=== PATIENT | female | born 1935 | race Caucasian/White ===

== ENCOUNTER 2016-12-20 11:50 | Inpatient (IN) | payer MEDICARE, OTHER ==
[~2016-12-20] VITALS: Ht 165.1 cm; Wt 104.0 kg
[2016-12-20] VITALS (8 sets, daily range): BP systolic 102–141; BP diastolic 49–75
[~2016-12-20 11:50] MED LIST: BABY ASPIRIN81 MG OR; CALCIUM 6001 TAB OR; COZAAR25 MG PO; LOMOTIL2.5 MG OR; MORPHINE SUL30 M2 IJ; NORCO1 TAB OR; PRILOSEC20 MG PO; VALIUM5 MG OR; VYTORIN1 TA1 OR; ZOLOFT50 MG OR
--- NOTE | 2016-12-20 12:07 | NUR ---
PT TO ROOM 13 VIA WC.
[2016-12-20 13:10] LABS: HEMATOCRIT 35.1 % (37.0-47.0); IMMATURE GRANULOCYTES 0.5 % (0.0-1.0); MEAN CELL VOLUME 91.6 fL CALC (80.0-100.0); MEAN CORPUSCULAR HGB 28.7 pG CALC (26.0-32.0); MEAN CORPUSCULAR HGB CONC 31.3 g/L CALC (32.0-36.0); NEUT# 15.41 thou/uL (2.00-7.15); RED BLOOD COUNT 3.83 mill/uL (4.20-5.60); RED CELL DISTRI WIDTH 14.6 % (11.5-15.5)
[2016-12-20 13:15] LABS: ALBUMIN 4.2 g/dL (3.2-5.0); BILIRUBIN, TOTAL 0.8 mg/dL (0.0-1.4); CALCIUM 9.2 mg/dL (8.4-10.2); POTASSIUM 4.7 mmol/l (3.5-5.1); TOTAL PROTEIN 7.1 g/dL (6.3-8.2)
[2016-12-20 14:40] LABS: URINE BILIRUBIN - DIPSTICK NEGATIVE (NEGATIVE); URINE BLOOD DIPSTICK MODERATE (NEGATIVE); URINE COLOR YELLOW; URINE GLUCOSE - DIPSTICK NEGATIVE (NEGATIVE); URINE KETONE NEGATIVE (NEGATIVE); URINE NITRITE - DIPSTICK NEGATIVE (Negative); URINE PH 5.5 (4.5-8.0); URINE PROTEIN - DIPSTICK NEGATIVE (NEG-TRACE); URINE UROBILINOGEN - DIPSTICK 0.2 E.U./dL (0.2)
--- NOTE | 2016-12-20 14:40 | NUR ---
PT UPDATED BY EDP ON POSITIVE TROPONIN, AWARE OF NECESSARY TRANFER TO [facility].
[2016-12-20 14:45] LABS: URINE CLARITY HAZY; URINE LEUK ESTERASE SMALL (NEGATIVE)
[2016-12-20 14:56] LABS: URINE SQUAMOUS EPITHELIAL CELL FEW EPI/hpf (0-FEW)
[2016-12-20 15:10] LABS: ACT PARTIAL THROMBO TIME 31.7 SECONDS (20.0-32.5); INTERNATIONAL NORMALIZED RATIO 1.1 RATIO (0.7-1.3); PROTHROMBIN TIME 12.5 SECONDS (9.0-12.5)
[2016-12-20] MEDS ORDERED: ELIQUIS2.5 MG PO (15:33)
[2016-12-20] MEDS ORDERED: SIMVASTATIN20 MG PO (15:34)
[2016-12-20] MEDS ORDERED: GABAPENTIN100 MG PO (15:34)
[2016-12-20] MEDS ORDERED: ZOLOFT50 MG PO (15:34)
[2016-12-20] MEDS ORDERED: B-121000 MC1 PO (15:36)
[2016-12-20] MEDS ORDERED: VITAMIN D-32000 UNI1 PO (15:36)
[2016-12-20] MEDS ORDERED: NORCO1 TA1 PO (15:37)
[2016-12-20] MEDS ORDERED: MYRBETRIQ50 MG PO (15:40)
--- NOTE | 2016-12-20 15:45 | NUR ---
PT ARRIVED TO THE UNIT VIA STRETCHER, PT AMBULATED TO BSC WITH MINIMAL ASSISTANCE AND THEN TO THE BED, PT AMBULATES WITH A SLOW UNSTEADY GAIT, PT A&OX3, PERRL, HR 82, RESP EVEN AND UNLABORED, BP 141/75, O2 93% ON RA, 20G LAC IV SALINE LOCKED, 20G RAC IV WITH NS INFUSING AT PERSCRIBED RATE, HEPARIN DRIP STOPPED IN ER BY NURSE MARTINEZ, SKIN WARM CD&I, [employer] AND CALL LOBATO SYSTEM EXPLAINED TO PT PRIOR TO APPLYING TO PT, ADMISSION ASSESSMENT COMPLETE, PT VERBALIZES UNDERSTANDING, SAFETY MEASURES INTRODUCED, CALL LOBATO WITHIN REACH
--- NOTE | 2016-12-20 16:00 | NUR ---
PT ADMITTED TO ICU. REPORT PROVIDED TO NEELA WARD, WHO TAKES PT UPSTAIRS.
--- NOTE | 2016-12-20 16:15 | NUR ---
PT SITTING UP IN BED TALKING TO VISITORS, VERBALIZES NO COMPLAINTS, CALL LOBATO WITHIN REACH
--- NOTE | 2016-12-20 17:20 | NUR ---
DR OAKLEY AT BEDSIDE
--- NOTE | 2016-12-20 17:30 | NUR ---
SETUP ASSISTANCE PROVIDED WITH PM MEAL TRAY
[2016-12-20 18:15] LABS: CHOLESTEROL HDL RATIO 3.6 (<4.4 (CALC))
--- NOTE | 2016-12-20 19:27 | NUR ---
BEDSIDE REPORT RECEIVED FROM NEELA WARD LPN. PT RESTING IN BED IN SEMI FOWLERS POSITION WITH AT BEDSIDE. DENIES PAIN CURRENTLY AND DENIES ANXIETY. STATES THAT SHE CONTINUES TO HAVE SOME SHAKING OF UNKNOWN CAUSE. SHAKING NOT OBSERVED BY NURSE AT THIS TIME. RESPIRATIONS EVEN AND UNLABORED ON ROOM AIR. ASSESSMENT COMPLETED AND DOCUMENTED. PLAN OF CARE DISCUSSED. PT ENCOURAGED TO VERBALIZE CONCERNS. STATES UNDERSTANDING. SAFETY MEAUSURES IN PLACE. CALL LIGHT SYSTEM REVIEWED AND IN REACH.
--- NOTE | 2016-12-20 22:05 | NUR ---
PT UP TO COMMODE TO VOID. HYGEINE PROVIDED AND LINENS CHANGES. PT SOB WITH EXERTION AND DIAPHORETIC. MAX ASSIST X 2 NEEDED TO GET BACK IN BED. PT C/O CHRONIC RIGHT SHOULDER PAIN AND ARTHRITIC PAIN TO LEFT ANKLE. LORTAB AND ATIVAN GIVEN AT HS. APPEARS RELAXED NOW; RESPIRAITONS EVEN AND UNLABORED. SKIN COOL AND DRY.
--- NOTE | 2016-12-20 22:33 | NUR ---
DAUGHTER, DOV COELHO, CALLED AND UPDATED ON PT CONDITION. LEFT PHONE NUMBER IN CASE SHE NEEDS TO BE REACHED [phone].
[2016-12-21] VITALS (12 sets, daily range): BP systolic 85–131; BP diastolic 42–61
--- NOTE | 2016-12-21 00:05 | NUR ---
PT ASLEEP AT THIS TIME. NO SIGNS OF DISTRESS. NO APPARENT CHANGES IN CONDITION. VS STABLE.
--- NOTE | 2016-12-21 01:14 | NUR ---
TROPONIN RESULTS REMAIN ELEVATED AT 0.318. DR. OAKLEY CALLED WITH [facility]. STATES THAT WE WILL AWAIT MORNING LAB RESULTS PT IS ASYMPTOMATIC.
--- NOTE | 2016-12-21 04:03 | NUR ---
UP TO BSC WITH LESS DIFFICULTY. MAX ASSIST X 1. SMILING AND PLEASANT. DENIES PAIN CURRENTLY. RESPIRATIONS EVEN AND UNLABORED. PT OFFERS NO COMPLAINTS AT THIS TIME.
[2016-12-21 06:13] LABS: HEMATOCRIT 32.7 % (37.0-47.0); HEMOGLOBIN 10.3 g/dl (12.0-16.0); IMMATURE GRANULOCYTES 0.4 % (0.0-1.0); MEAN CELL VOLUME 90.8 fL CALC (80.0-100.0); MEAN CORPUSCULAR HGB 28.6 pG CALC (26.0-32.0); MEAN CORPUSCULAR HGB CONC 31.5 g/L CALC (32.0-36.0); NEUT# 10.45 thou/uL (2.00-7.15); RED BLOOD COUNT 3.6 mill/uL (4.20-5.60); RED CELL DISTRI WIDTH 14.6 % (11.5-15.5)
[2016-12-21 06:27] LABS: ALBUMIN 3.4 g/dL (3.2-5.0); BILIRUBIN, TOTAL 0.6 mg/dL (0.0-1.4); CALCIUM 8.8 mg/dL (8.4-10.2); CREATININE 2.1 mg/dL (0.5-1.0); POTASSIUM 4.5 mmol/l (3.5-5.1); TOTAL PROTEIN 5.9 g/dL (6.3-8.2)
--- NOTE | 2016-12-21 06:51 | NUR ---
TROPONIN DECREASED FROM LAST LAB DRAW.
--- NOTE | 2016-12-21 07:20 | NUR ---
PT LAYING IN BED AWAKE WATCHING TV, PT DENIES ANY CHEST PAIN OR DISCOMFORT, PT DOES COMPLAIN OF LEG AND R SHOULDER PAIN, PT ASSISTED WITH REPOSITIONING FOR COMFORT, PILLOW REPOSITIONED UNDER KNEES PER PT REQUEST, PAIN MEDICATION GIVEN PERSCRIBED AFTER ASSESSMENT IS COMPLETE, PT A & O X3, PERRL, TEMP. 100.5, HR PACED 65, RESP EVEN AND UNLABORED, BP 131/58, O2 94% ON RA, 20G LAC IV SALINE LOCKED, NO REDNESS OR DRAINAGE AT SITE, STRONG RADIAL PULSES, WEAK PEDAL PULSES, AM ASSESSMENT COMPLETE, SEE INTERVENTIONS, SAFETY MEASURES REINFORCED, CALL LOBATO WITHIN REACH
--- NOTE | 2016-12-21 07:35 | NUR ---
SETUP ASSISTANCE PROVIDED WITH AM MEAL TRAJosé Miguel
--- NOTE | 2016-12-21 08:05 | NUR ---
PT LAYING IN BED WATCHING TV, VERBALIZES NO COMPLAINTS, TOLERATED AM MEAL WELL, CALL LOBATO WITHIN REACH
--- NOTE | 2016-12-21 08:30 | NUR ---
DR OAKLEY AT BEDSIDE DISCUSSING PLAN OF CARE
--- NOTE | 2016-12-21 09:01 | NUR ---
PT'S LEGS REPOSITIONED FOR COMFORT DUE TO PT COMPLAINT OF L FOOT PAIN, WHEN ASKED IF THIS PAIN WAS SOMETHING NEW, PT STATED "I HAVE THIS PAIN FROM TIME TO TIME"
--- NOTE | 2016-12-21 09:45 | NUR ---
L SHANELL HOSE REMOVED FOR PT COMFORT
--- NOTE | 2016-12-21 10:15 | NUR ---
L LEG PAIN RESOLVED PER PT, PT LAYING IN BED WATCHING TV, NO S/S OF DISTRESS, REMINDED TO CALL FOR ASSISTANCE, CALL LOBATO WITHIN REACH
--- NOTE | 2016-12-21 10:50 | NUR ---
TEMP RECHECK 99.2
--- NOTE | 2016-12-21 11:25 | NUR ---
SETUP ASSISTANCE PROVIDED WITH LUNCH TRAY
--- NOTE | 2016-12-21 12:10 | NUR ---
PT SITTING UP IN THE BED TALKING ON HER CELL PHONE, NO S/S OF DISTRESS, TOLERATED LUNCH WELL, CALL LOBATO WITHIN REACH
--- NOTE | 2016-12-21 12:45 | NUR ---
PT ASSISTED TO THE BSC AND THEN TO RECLINER, PT AMBULATES WITH A SLOW UNSTEADY GAIT, PT REMINDED TO CALL FOR ASSISTANCE, PT VERBALIZES UNDERSTANDING, CALL LOBATO WITHIN REACH
--- NOTE | 2016-12-21 14:00 | NUR ---
PT'S BP 85/49, DISCUSSED WITH PT WHAT WAS A NORMAL BP FOR HER, PT STATED "80-90S OVER 40-50S IS MY NORMAL", PT DENIES FEELING DIZZY OR WEAK, NO S/S OF DISTRESS, PT REMINDED TO CALL FOR ASSISTANCE AND IF SHE STARTS TO FEEL DIFFERENT, PT VERBALIZES UNDERSTANDING, CALL LOBATO WITHIN REACH
--- NOTE | 2016-12-21 15:41 | NUR ---
MULTIPLE VISITORS AT BEDSIDE
--- NOTE | 2016-12-21 16:45 | NUR ---
PT SITTING IN RECLINER, TOLERATING WELL, PT VERBALIZES NO COMPLAINTS, CALL LOBATO WITHIN REACH
--- NOTE | 2016-12-21 17:10 | NUR ---
PT ASSISTED TO THE BSC AND BACK TO THE RECLINER WITH 1 PERSON STAND BY ASSISTANCE, PT AMBULATES WITH A SLOW UNSTEADY GAIT, PT TOLERATED WELL, REMINDED TO CALL FOR ASSISTANCE, CALL LOBATO WITHIN REACH
--- NOTE | 2016-12-21 17:25 | NUR ---
SETUP ASSISTANCE PROVIDED WITH PM MEAL
--- NOTE | 2016-12-21 17:31 | NUR ---
CASE MANAGEMENT AT BEDSIDE
--- NOTE | 2016-12-21 19:00 | NUR ---
BEDSIDE REPORT RECEIVED FROM MAINOR ROBINS;PT RESTING IN RECLINER WITH FAMILY AT BEDSIDE;PT AMBULATED WITH 1 PERSON ASSIST AND ASSISTED DEVICE TO BEDSIDE COMMODE AND VOIDED 300CC OF YELLOW/CLEAR URINE;PT RE-POSITIONED IN BED;LEGS ELEVATED WITH PILLOW PER REQUEST;PT A&O X3;PT VOICES NO OTHER COMPLAINTS OR CONCERNS AT THIS TIME;WILL CONTINUE TO MONITOR
--- NOTE | 2016-12-21 20:30 | NUR ---
PT RESTING IN SEMI FOWLERS POSITION WITH FAMILY AT BEDSIDE;ASSESSMENT COMPLETED;#20G TO LAC INFUSING D5 1/2 NS @ 75ML/HR WELL;RESPIRATIONS EVEN AND UNLABORED ON RA;PT VOICES NO COMPLAINTS OF PAIN OR DISCOMFORTS AT THIS TIME BUT DOES REQUEST PRN ATIVAN;PRN ATIVAN 1MG ADMINISTERED;SLIGHT TREMORS NOTED THROUGH BODY;BILATERAL LEGS ELEVATED ON A PILLOW,WARM BLANKET PROVIDED PER REQUEST;PT DENIES ANY OTHER NEEDS;SAFETY PRECAUTIONS REINFORCED;PT EDUCATED TO CALL FOR ASSISTANCE IF NEEDED;FALL PRECAUTIONS IN PLACE WITH CALL LIGHT IN REACH;WILL CONTINUE TO MONITOR
--- NOTE | 2016-12-21 22:30 | NUR ---
PT APPEARS TO BE SLEEPING IN SEMI FOWLERS POSITION;NO S/S OF DISTRESS NOTED;RESPIRATIONS EVEN AND UNLABORED ON RA;IV FLUIDS INFUSING WELL TO LAC;FALL PRECAUTIONS IN PLACE;CALL LIGHT IN REACH;WILL CONTINUE TO MONITOR
[2016-12-22] VITALS (7 sets, daily range): BP systolic 97–132; BP diastolic 34–59
--- NOTE | 2016-12-22 00:30 | NUR ---
PT RESTING IN SEMI FOWLERS POSITION;NO S/S OF DISTRESS NOTED;RESPIRATIONS EVEN AND UNLABORED ON RA;IV FLUIDS INFUSING WELL;FALL PRECAUTIONS IN PLACE WITH BED IN THE LOWEST POSITION;CALL LIGHT IN REACH;WILL CONTINUE TO MONITOR
--- NOTE | 2016-12-22 02:30 | NUR ---
PT CALLED NURSE TO ROOM TO HELP HER AMBULATE TO BEDSIDE COMMODE;PT CURRENT TEMP 100.3;PT MEDICATED WITH PRN TYLENOL 650MG,BLANKETS REMOVED AND AC LOWERED;PT RE-POSITONED BACK INTO BED;PT VOICES NO OTHER COMPLAINTS OR CONCERNS AT THIS TIME;WILL CONTINUE TO MONITOR FOR EFFECT
--- NOTE | 2016-12-22 03:45 | NUR ---
TEMP RE-CHECKED @ 99.0
--- NOTE | 2016-12-22 04:53 | NUR ---
PT APPEARS TO BE SLEEPING IN SEMI FOWLERS POSITION;NO S/S OF DISTRESS NOTED;RESPIRATIONS EVEN AND UNLABORED ON RA;CALL LIGHT IN REACH;WILL CONTINUE TO MONITOR
--- NOTE | 2016-12-22 06:30 | NUR ---
PT SLEEPING IN SEMI FOWLERS WITH EYES CLOSED;RESPIRATIONS EVEN AND UNLABORED ON RA;IV FLUIDS INFUSING WELL TO LAC;FALL PRECAUTIONS IN PLACE;CALL LIGHT IN REACH;WILL CONTINUE TO MONITOR
--- NOTE | 2016-12-22 07:00 | NUR ---
SHIFT CHANGE REPORT FROM MIGUE DÍAZ SLEEPING SOUNDLY AND DOES NOT AWAKEN TO VERBAL STIMULI BUT TO DOES AWAKEN TO TACTILE STIMULI, ORIENTED, SIGN OF LEAKAGE OBSERVED AT IV SITE IN LAC, THEN SIGN OF INFILTRATION OBSERVED. CATHETER REMOVED, NO C/O DISCOMFORT BUT PT WANTS TO KNOW IF SHE WILL BE GOING HOME TODAY. ADVISED MD WILL BE ROUNDING SOON AND WILL HAVE MORE INFORMATION ON D/C PLANS AT THAT TIME.
--- NOTE | 2016-12-22 08:04 | NUR ---
ASSISTED TO BSC AND SET UP FOR MEAL AT THIS TIME, CALL LUIS ALFREDO IN REACH.
--- NOTE | 2016-12-22 08:19 | NUR ---
DR OAKLEY HERE AT THIS TIME ROUNDING WITH PT AND EXPLAINED POC, PT STATED SHE WANTS TO GO HOME TODAY. DR OAKLEY ADVISED MORE TEST WILL BE DONE AND AFTER REVIEWING RESULTS HE WILL DECIDE ON NEXT STEP.
[2016-12-22 08:42] LABS: HEMATOCRIT 32.7 % (37.0-47.0); HEMOGLOBIN 10.2 g/dl (12.0-16.0); IMMATURE GRANULOCYTES 0.5 % (0.0-1.0); MEAN CELL VOLUME 91.9 fL CALC (80.0-100.0); MEAN CORPUSCULAR HGB 28.7 pG CALC (26.0-32.0); MEAN CORPUSCULAR HGB CONC 31.2 g/L CALC (32.0-36.0); NEUT# 4.45 thou/uL (2.00-7.15); RED BLOOD COUNT 3.56 mill/uL (4.20-5.60); RED CELL DISTRI WIDTH 14.6 % (11.5-15.5)
[2016-12-22 09:22] LABS: CALCIUM 8.7 mg/dL (8.4-10.2); CREATININE 2.4 mg/dL (0.5-1.0); POTASSIUM 4.6 mmol/l (3.5-5.1)
--- NOTE | 2016-12-22 10:00 | NUR ---
LYING SUPINE IN BED, ENCOURAGED TO GET OOB AND SIT UP IN CHAIR BUT REFUSED STATING HE JUST WANTS TO REST NOW.
--- NOTE | 2016-12-22 11:35 | NUR ---
DR OAKLEY NOTIFIED VIA PHONE OF RECENT LAB REPORTS, GAVE ORDERS TO INCREASE ORAL FLUID INTAKE.
--- NOTE | 2016-12-22 12:12 | NUR ---
SITTING UP IN RECLINER, ATE MEAL, ENCOURAGED TO INCREASE FLUID INTAKE ADVISED BY MD, CALL LOBATO IN REACH.
[2016-12-22] MEDS ORDERED: Levaquin PO (12:31)
--- NOTE | 2016-12-22 14:11 | NUR ---
Discharge instructions given. Patient verbalizes understanding of same. Discharged in stable condition via Wheelchair to Home with family. All belongings sent with pt. PATIENTS DAUGHTER HAD QUESTIONS FOR DR. OAKLEY, HE WAS CALLED AND MESSAGE LEFT ON PHONE, HE RESPONDED IN TIMELY MANNER AND ALL QUESTIONS ADDRESSED.
== END 2016-12-22 14:00 | disposition home or self-care (01) | DRG 690 ==
LOC: ED 11:50 → ED-I 14:49 → ED 15:10 → ICU 15:11
PROVIDERS: Emergency Medicine; ADMIT Internal Medicine Geriatric Medicine; ATTEND Internal Medicine Geriatric Medicine
DX: N39.0 Urinary tract infection, site not specified (principal); R78.81 Bacteremia; K27.9 Peptic ulcer, site unspecified, unspecified as acute or chronic, without hemorrhage or perforation; F41.9 Anxiety disorder, unspecified; K21.9 Gastro-esophageal reflux disease without esophagitis; I25.10 Atherosclerotic heart disease of native coronary artery without angina pectoris; M19.90 Unspecified osteoarthritis, unspecified site; E78.5 Hyperlipidemia, unspecified; I12.9 Hypertensive chronic kidney disease with stage 1 through stage 4 chronic kidney disease, or unspecified chronic kidney disease; N18.9 Chronic kidney disease, unspecified; F32.9 Major depressive disorder, single episode, unspecified; R74.8 Abnormal levels of other serum enzymes; B96.20 Unspecified Escherichia coli [E. coli] as the cause of diseases classified elsewhere; Z95.0 Presence of cardiac pacemaker; Z96.651 Presence of right artificial knee joint; Z91.81 History of falling
CPT/HCPCS: J1956; J2060

== ENCOUNTER → 2018-03-29 | Outpatient (REF) | payer MEDICARE, OTHER ==
[~2018-03-29] MED LIST changes: +B-121000 MC1 PO; +ELIQUIS2.5 MG PO; +GABAPENTIN100 MG PO; +Levaquin PO; +MYRBETRIQ50 MG PO; +NORCO1 TA1 PO; +SIMVASTATIN20 MG PO; +VITAMIN D-32000 UNI1 PO; +ZOLOFT50 MG PO
[2018-03-29 10:48] LABS: HEMATOCRIT 34.3 % (37.0-47.0); HEMOGLOBIN 10.6 g/dl (12.0-16.0); IMMATURE GRANULOCYTES 0.3 % (0.0-5.0); MEAN CELL VOLUME 95.5 fL CALC (80.0-100.0); MEAN CORPUSCULAR HGB 29.5 pG CALC (26.0-32.0); MEAN CORPUSCULAR HGB CONC 30.9 g/L CALC (32.0-36.0); NEUT# 4.34 thou/uL (2.00-7.15); RED BLOOD COUNT 3.59 mill/uL (4.20-5.60); RED CELL DISTRI WIDTH 13.9 % (11.5-15.5)
[2018-03-29 10:56] LABS: ALBUMIN 3.9 g/dL (3.2-5.0); BILIRUBIN, TOTAL 0.5 mg/dL (0.0-1.4); CHOLESTEROL HDL RATIO 3.2 (<4.4 (CALC)); CREATININE 1.5 mg/dL (0.5-1.0); POTASSIUM 5.1 mmol/l (3.5-5.1); TOTAL PROTEIN 6.4 g/dL (6.3-8.2)
== END | disposition home or self-care (01) ==
LOC: LAB 09:48
PROVIDERS: ATTEND Internal Medicine Geriatric Medicine
DX: E78.2 Mixed hyperlipidemia (principal); I10 Essential (primary) hypertension